=== PATIENT | male | born 1945 | race Caucasian/White ===

== ENCOUNTER → 2016-11-26 | Outpatient (CLI) | payer MEDICARE, BC ==
[2016-11-26 17:21] LABS: Non-African American GFR(MDRD) 54 (>60 ml/min/1.73 sqM)
== END | disposition home or self-care (01) ==
LOC: LABWHC1 16:07
PROVIDERS: ATTEND Otolaryngology
DX: Z01.818 Encounter for other preprocedural examination (principal); R42 Dizziness and giddiness
CPT/HCPCS: 36415; 82565

== ENCOUNTER → 2016-11-27 | Outpatient (CLI) | payer MEDICARE, BC ==
--- NOTE | 2016-11-27 09:15 | MR ---
MR internal auditory canals without contrast HISTORY: Vertigo Multiplanar multisequence imaging performed through the brain with small [id number] images through the internal auditory canals. Postcontrast images were not performed. Patient refused further imagin g. No comparisons There is no restricted diffusion. Cortical atrophy is present. Corpus callosum, pituitary, cervical m edullary junction, cerebellopontine angles are normal. Periventricular white matter shows hyperintens ity on inversion recovery and T2-weighted sequences, scattered hyperintensities are present, approxim ately 10-20 lesions. There is no hemorrhage or hydrocephalus. The orbits show symmetric appearance. I nflammatory changes are present in the bilateral maxillary sinus, sphenoid, ethmoid air cells. There are normal vascular flow voids. Internal auditory canals show symmetric and unremarkable appearance. Orbits are unremarkable. IMPRESSION: Nonspecific white matter demyelination, cortical atrophy likely related to age. Sinus dis ease.
--- NOTE | 2016-11-27 09:28 | US ---
EXAMINATION TYPE: US carotid duplex BILAT DATE OF EXAM: 11/27/2016 8:51 AM COMPARISON: NONE CLINICAL HISTORY: H81.43 vertigo. EXAM MEASUREMENTS: RIGHT: Peak Systolic Velocity (PSV) cm/sec ----- Right CCA: 58.6 ----- Right ICA: 70.4 ----- Right ECA: 249.9 ICA/CCA ratio: 1.2 RIGHT: End Diastole cm/sec ----- Right CCA: 18.6 ----- Right ICA: 34.1 ----- Right ECA: 49.6 LEFT: Peak Systolic Velocity (PSV) cm/sec ----- Left CCA: 57.8 ----- Left ICA: 212.6 ----- Left ECA: 136.6 ICA/CCA ratio: 3.7 LEFT: End Diastole cm/sec ----- Left CCA: 16.8 ----- Left ICA: 100.4 ----- Left ECA: 16.0 VERTEBRALS (direction of flow): Right Vertebral: Antegrade Left Vertebral: Antegrade Findings: Bilateral severe atherosclerotic changes, no significant velocity increases on RIGHT ICA, R IGHT ECA and LEFT ICA show significant velocity increases. IMPRESSION: 1. Estimated diameter reduction left ICA of approximately 50-69%. Criteria for Assigning % of Stenosis / Diameter reduction (Estimation based on the indirect measurements of the internal carotid artery velocities (ICA PSV). 1. Normal (no stenosis)=ICA PSV < 125 cm/s: ratio < 2.0: ICA EDV<40 cm/s. 2. Less than 50% stenosis=ICA PSV < 125 cm/s: ratio < 2.0: ICA EDV<40 cm/s. 3. 50 to 69% stenosis=ICA PSV of 125 to 230 cm/s: ration 2.0 ? 4.0: ICA EDV 40-100 cm/s. 4. Greater than 70% stenosis to near occlusion= ICA PSV > 230 cm/s: ratio > 4.0: ICA EDV > 100 cm/s. 5. Near occlusion= ICA PSV velocities may be low or undetectable: variable ratio and ICA EDV. 6. Total occlusion=unable to detect flow.
== END | disposition home or self-care (01) ==
LOC: RADMRIMAIN 07:25
PROVIDERS: ATTEND Otolaryngology
DX: G31.9 Degenerative disease of nervous system, unspecified (principal); I65.22 Occlusion and stenosis of left carotid artery
CPT/HCPCS: 70551; 93880

== ENCOUNTER → 2017-03-27 | Outpatient (CLI) | payer MEDICARE, BC ==
[2017-03-27 10:01] LABS: CH 31.2; CHCM 33.1; HCT 48.1 % (39.0-53.0); HDW 2.72; HGB 15.4 gm/dL (13.0-17.5); MCH 30.4 pg (25.0-35.0); MCHC 32.1 g/dL (31.0-37.0); MCV 94.7 fL (80.0-100.0); Mean Platelet Volume 7.7; RBC 5.08 m/uL (4.30-5.90); RDW 14.8 % (11.5-15.5); WBC 6.7 k/uL (3.8-10.6)
[2017-03-27 10:16] LABS: Anion Gap 13 mmol/L; Blood Urea Nitrogen 21 mg/dL (9-20); Carbon Dioxide 23 mmol/L (22-30); Chloride 107 mmol/L (98-107); Non-African American GFR(MDRD) 54 (>60 ml/min/1.73 sqM); Potassium 4.4 mmol/L (3.5-5.1); Sodium 143 mmol/L (137-145)
== END | disposition home or self-care (01) ==
LOC: LABPAT 09:10
PROVIDERS: ATTEND Internal Medicine Cardiovascular Disease
DX: Z01.812 Encounter for preprocedural laboratory examination (principal); I48.2 Chronic atrial fibrillation
CPT/HCPCS: 80051; 82565; 84520; 85027

== ENCOUNTER 2017-04-27 07:03 | Day surgery (SDC) | payer MEDICARE, BC ==
[~2017-04-27 07:03] MED LIST: ceFAZolin 1,000 MG in SODIUM CHLORIDE 0.9% IRRIGATIO 250 ML IRRIGATION ONE; ceFAZolin 2 GM in SODIUM CHLORIDE 0.9% 100 ML IVPB ONE
[2017-04-27 07:54] LABS: Basophils # (A) 0.1 k/uL (0-0.2); Basophils % (A) 1 %; CH 31.5; CHCM 33.9; Eosinophils # (A) 0.7 k/uL (0-0.7); Eosinophils % (A) 9 %; HCT 47.7 % (39.0-53.0); HDW 2.72; HGB 16.4 gm/dL (13.0-17.5); INR 1.2 (<1.2); Luc # (Auto) 0.14; Luc % (Auto) 2; Lymphocytes # (A) 2.3 k/uL (1.0-4.8); Lymphocytes % (A) 28 %; MCH 32.2 pg (25.0-35.0); MCHC 34.4 g/dL (31.0-37.0); MCV 93.5 fL (80.0-100.0); Mean Platelet Volume 8.5; Monocytes # (A) 0.5 k/uL (0-1.0); Monocytes % (A) 6 %; Neutrophils # (A) 4.3 k/uL (1.3-7.7); Neutrophils % (A) 54 %; Prothrombin Time 11.6 sec (9.0-12.0); RDW 15.1 % (11.5-15.5)
[2017-04-27 08:08] LABS: Anion Gap 13 mmol/L; Blood Urea Nitrogen 23 mg/dL (9-20); Calcium 9.3 mg/dL (8.4-10.2); Carbon Dioxide 23 mmol/L (22-30); Chloride 104 mmol/L (98-107); Glucose 109 mg/dL (74-99); Non-African American GFR(MDRD) >60 (>60 ml/min/1.73 sqM); Potassium 4.7 mmol/L (3.5-5.1); Sodium 140 mmol/L (137-145)
[2017-04-27] MEDS: SODIUM CHLORIDE 0.9% 1,000 ML IV SCH ×2 (08:58→15:00)
[2017-04-27] MEDS ORDERED: IOHEXOL 350 MG/ML 50ML BOTTLE INJ ONE (09:10)
[2017-04-27] MEDS ORDERED: MIDAZOLAM 2 MG/2 ML VIAL ONE (09:39)
[2017-04-27] MEDS ORDERED: fentaNYL (PF) 50 MCG/ML 2 ML AMP ONE (09:39)
[2017-04-27] MEDS ORDERED: MIDAZOLAM 2 MG/2 ML VIAL IV ONE (09:52)
[2017-04-27] MEDS ORDERED: fentaNYL (PF) 50 MCG/ML 2 ML AMP IV ONE (09:52)
[2017-04-27] MEDS ORDERED: LIDOCAINE 1% INJ 10MG/ML (20 ML MDV) SQ ONE ×2 (09:54)
[2017-04-27] MEDS ORDERED: ACETAMINOPHEN TAB 325 MG TAB PO PRN (10:34)
--- NOTE | 2017-04-27 10:48 | P.PCN ---
Date of Procedure: 04/27/17 Preoperative Diagnosis: Sick Sinus syndrome with history of syncope Postoperative Diagnosis: The same Procedure(s) Performed: Axillary venography, single-chamber, permanent pacemaker implantation. Implants: Indications for Procedure: Operative Findings: Description of Procedure: HISTORY: This is a 72-year-old gentleman with history of atrial fibrillation, had a syncopal episode. Patient was evaluated by 24-hour monitor by Dr. Curtis. Patient was found to have evidence of sick sinus syndrome with pauses of more than 3 seconds. Patient was advised to have permanent pacemaker implantation. CONSENT:I have discussed the risks, benefits and alternative therapies for the above-mentioned procedure and for both sedation/analgesia as well as necessary blood product administration, if indicated, as they pertain to this patient. The patient has indicated understanding and acceptance of the risks and procedures discussed. CONSCIOUS SEDATION: Patient was given 1 mg of Versed and 50 g of fentanyl. Duration of the sedation is 40 minutes. PROCEDURE: Patient was brought to the lab in a fasting state. Patient was prepped and draped in the usual fashion. Patient was given IV sedation with fentanyl and Versed. The skin below the left clavicle was infiltrated with lidocaine. An incision was made parallel to deltopectoral groove was deepened until the pectoral fascia was exposed. A pocket was created by blunt dissection and cautery. Axillary venography was performed to delineate the course of the axillary vein. Single stick was performed into extrathoracic portion of the axillary vein and a single sheath was advanced over the guidewires in to left subclavian vein. LEADS: VENTRICULAR: This is manufactured by [employer]. Model number is [id number]. Serial number is [id number]. THE DEVICE: This is manufactured by [employer]. Model number is [id number]. Serial number is [id number]. The ventricular lead is maneuvered l with help of a straight and curved stylets into the left ventricle apical region. Satisfactory position was obtained and threshold measurements were made. The atrial lead was then maneuvered into the right atrial appendage. And thresholds were obtained. THRESHOLDS: VENTRICLE: The minimal patient threshold was 0.5 V at a pulse width of 0.5 ms. The impedance is 967 ohms. The intrinsic R-wave is 10 mV. The lead and pulse generator remained in the pocket after it was washed with antibiotics. Pocket was closed in the usual fashion. The fascia was closed with 2-0 Prolene ,the subcutaneous tissue was closed with 3-0 Prolene and the skin was closed with 4-0 Prolene. PROGRAMMING: MODE: VVIR RATE: 60-120 OUTPUT: Ventricle& the 0.5 V at 0.5 ms FINAL IMPRESSION: #1. Axillary venography. #2. Insertion of the single- chamber permanent pacemaker COMPLICATIONS: Nil PLAN: And Antibiotics. Resume home medications along with anticoagulation. Chest x-ray in the morning. If stable will be discharged home within next 24 hours.
[2017-04-27 11:32] VITALS: BMI 25.6
[2017-04-27] MEDS: HYDROcodone/APAP 5-325MG 1 EACH TAB PO PRN ×2 (12:41→22:30)
[2017-04-27] MEDS: ceFAZolin 2 GM in SODIUM CHLORIDE 0.9% 100 ML IVPB SCH ×2 (16:00→22:14)
[2017-04-27] MEDS: CARBIDOPA-LEVODOPA 25-100 MG 1 EACH TAB PO SCH (16:25)
[2017-04-27] MEDS ORDERED: WARFARIN 2.5 MG TAB PO SCH (18:00)
[2017-04-27] MEDS ORDERED: ATORVASTATIN 10 MG TAB PO SCH (21:00)
[2017-04-28] MEDS: ceFAZolin 2 GM in SODIUM CHLORIDE 0.9% 100 ML IVPB SCH ×2 (03:40→08:24)
[2017-04-28] MEDS: HYDROcodone/APAP 5-325MG 1 EACH TAB PO PRN ×2 (03:43→08:23)
--- NOTE | 2017-04-28 07:34 | XR ---
EXAMINATION TYPE: XR chest 2V DATE OF EXAM: 04/28/2017 HISTORY: Lead placement check. REFERENCE: Previous study dated 05/26/2014. FINDINGS: There is unipolar pacemaker place on the left. The distal lead overlies the right ventricle . The heart is enlarged. There is left basilar airspace disease. There is a small left effusion. There is no evidence of pneumothorax. IMPRESSION: 1. CARDIOMEGALY. 2. LEFT BASILAR AIRSPACE DISEASE. 3. SMALL LEFT EFFUSION.
[2017-04-28] MEDS: SODIUM CHLORIDE 0.9% 1,000 ML IV SCH ×2 (07:54→07:55)
[2017-04-28 07:59] VITALS: BP 131/94; PULSE 62; RESP 18; TEMP 97.6
[2017-04-28] MEDS: CARBIDOPA-LEVODOPA 25-100 MG 1 EACH TAB PO SCH (08:22)
[2017-04-28] MEDS ORDERED: ASPIRIN 81 MG CHEW PO SCH (09:00)
--- NOTE | 2017-04-28 09:48 | P.DS ---
Providers Date of admission: 04/27/2017. Attending physician: Gold Cazares Primary care physician: Chad Corcoran - Discharge Diagnosis(es) (1) Presence of permanent cardiac pacemaker Current Visit: Yes Status: Acute (2) Chronic atrial fibrillation Current Visit: Yes Status: Acute (3) Sick sinus syndrome Current Visit: Yes Status: Acute (4) History of syncope Current Visit: Yes Status: Acute Hospital Course: This patient was brought in for elective permanent pacemaker implantation because of syncope and evidence of sick sinus syndrome. Patient has chronic atrial fibrillation. Patient had a single-chamber permanent pacemaker implantation yesterday. Patient tolerated the procedure well. He remained stable overnight without any significant issues. Patient had transient hypotension which was corrected with IV fluids. Chest x-ray shows proper lead position. There is questionable mild atelectasis in the small left-sided pleural effusion. Overall, patient is critically stable. Patient is being discharged home in stable condition. He'll continue his home medications including Coumadin. He will have PT and INR on Wednesday. Follow-up with Dr. Curtis, and also in the device clinic in 1 week. Patient is given usual post pacemaker instructions. Patient is advised to keep the incision dry and also not to use her left arm above the shoulder level. He is advised to avoid any heavy lifting, pushing, pulling or driving car. He is also instructed to call us if he does any fever, chills, redness or swelling around the incision Plan - Discharge Summary New Discharge Prescriptions: New Cephalexin [Keflex] 500 mg PO Q8HR #10 cap No Action RX: Aspirin [Adult Low Dose Aspirin EC] 81 mg PO DAILY Atorvastatin [Lipitor] 10 mg PO HS Carbidopa-Levodopa 25-100 mg [Sinemet 25-100 mg] 2 tab PO BID RX: Warfarin [Coumadin] 5 mg PO MOWEFRSA RX: Warfarin [Coumadin] 2.5 mg PO SUTUTH Cholecalciferol [Vitamin D3] 1,000 unit PO DAILY Discharge Medication List Atorvastatin [Lipitor] 10 mg PO HS 04/23/17 [History] Carbidopa-Levodopa 25-100 mg [Sinemet 25-100 mg] 2 tab PO BID 04/23/17 [History] Cholecalciferol [Vitamin D3] 1,000 unit PO DAILY 04/23/17 [History] RX: Aspirin [Adult Low Dose Aspirin EC] 81 mg PO DAILY 04/23/17 [History] RX: Warfarin [Coumadin] 2.5 mg PO SUTUTH 04/23/17 [History] RX: Warfarin [Coumadin] 5 mg PO MOWEFRSA 04/23/17 [History] Cephalexin [Keflex] 500 mg PO Q8HR #10 cap 04/28/17 [Rx] Follow up Appointment(s)/Referral(s): Marco Curtis MD [STAFF PHYSICIAN] - 1 Week Discharge Disposition: HOME SELF-CARE
[2017-04-28] MEDS ORDERED: CHOLECALCIFEROL 1,000 UNIT TAB PO SCH (12:00)
[2017-04-28] MEDS ORDERED: WARFARIN 5 MG TAB PO SCH (18:00)
== END 2017-04-28 10:53 | disposition home or self-care (01) ==
LOC: CATHEP 07:03 → 3OBS 10:30 → CATHEP 04-28 10:53
PROVIDERS: ATTEND Internal Medicine Cardiovascular Disease
DX: I49.5 Sick sinus syndrome (principal); I48.2 Chronic atrial fibrillation; Z79.01 Long term (current) use of anticoagulants; Z87.891 Personal history of nicotine dependence; Z79.899 Other long term (current) drug therapy; I51.7 Cardiomegaly; J90 Pleural effusion, not elsewhere classified; J98.4 Other disorders of lung
CPT/HCPCS: 71020 ×2; 99152; 99153 ×2; 33207; 80048; 85025; 85610; C1786; C1898; J2250; J0690 ×3; J2001; J3010; Q9967

== ENCOUNTER → 2017-12-15 | Outpatient (CLI) | payer MEDICARE, BC ==
--- NOTE | 2017-12-15 09:51 | XR ---
EXAMINATION TYPE: XR chest 2V DATE OF EXAM: 12/15/2017 COMPARISON: 04/28/[address] 02/21/2016 HISTORY: 72-year-old male weakness and shortness of breath TECHNIQUE: Frontal and lateral views FINDINGS: Heart upper limits of normal in size. Mild elongation thoracic aorta. There is some patchy peripheral left basilar density. No pleural effusion. Retrocardiac air-fluid levels are noted. Left anterior ch est wall pacemaker generator with right ventricular lead. IMPRESSION: 1. Borderline heart size. Some patchy left basilar atelectasis or early infiltrate. 2. Large hiatal hernia. When correlating with patient's previous CT, there is suggestion of a promine nt gastric fundal diverticulum as well.
[2017-12-15 10:58] LABS: INR 2.8 (<1.2); Partial Thromboplastin Time 30.2 sec (22.0-30.0); Prothrombin Time 25.5 sec (9.0-12.0)
[2017-12-15 11:00] LABS: ALT 14 U/L (21-72); AST 21 U/L (17-59); Albumin 3.7 g/dL (3.5-5.0); Alkaline Phosphatase 236 U/L (38-126); Anion Gap 13 mmol/L; Blood Urea Nitrogen 21 mg/dL (9-20); Carbon Dioxide 24 mmol/L (22-30); Chloride 106 mmol/L (98-107); Glucose 126 mg/dL (74-99); Potassium 4.1 mmol/L (3.5-5.1); Sodium 143 mmol/L (137-145); Total Bilirubin 0.6 mg/dL (0.2-1.3); Total Protein 6.7 g/dL (6.3-8.2)
[2017-12-15 11:10] LABS: HCT 44.9 % (39.0-53.0); HGB 14.7 gm/dL (13.0-17.5); MCH 30.1 pg (25.0-35.0); MCHC 32.7 g/dL (31.0-37.0); Platelet Count 213 k/uL (150-450); RBC 4.88 m/uL (4.30-5.90); RDW 14.5 % (11.5-15.5); WBC 10.9 k/uL (3.8-10.6)
== END | disposition home or self-care (01) ==
LOC: RADXRMAIN 09:24
PROVIDERS: ATTEND Psychiatry & Neurology Neurology
DX: R06.02 Shortness of breath (principal); G21.19 Other drug induced secondary parkinsonism; T38.0X5A Adverse effect of glucocorticoids and synthetic analogues, initial encounter
CPT/HCPCS: 36415; 71046; 80053; 85027; 85610; 85730

== ENCOUNTER → 2018-01-19 | Outpatient (CLI) | payer MEDICARE, BC ==
[2018-01-19 09:56] LABS: Anion Gap 11 mmol/L; Blood Urea Nitrogen 17 mg/dL (9-20); Calcium 8.7 mg/dL (8.4-10.2); Carbon Dioxide 27 mmol/L (22-30); Chloride 104 mmol/L (98-107); Glucose 193 mg/dL (74-99); Potassium 3.7 mmol/L (3.5-5.1); Sodium 142 mmol/L (137-145)
== END | disposition home or self-care (01) ==
LOC: LABWHC1 08:18
PROVIDERS: ATTEND Psychiatry & Neurology Neurology
DX: I48.2 Chronic atrial fibrillation (principal)
CPT/HCPCS: 36415; 80048

== ENCOUNTER → 2018-01-21 | Outpatient (CLI) | payer MEDICARE, BC ==
--- NOTE | 2018-01-21 09:54 | CT ---
EXAMINATION TYPE: CT chest wo con DATE OF EXAM: 01/21/2018 COMPARISON: NONE HISTORY: Pneumonia CT DLP: 374.[address] of the chest was performed with lung and mediastinal window settings submitted. The la ck of contrast limits evaluation of the vascular, mediastinal and parenchymal structures including th e upper abdomen. LUNGS: The lungs are clear and free of infiltrate. No atelectasis. No pulmonary nodule or mass is de tected. No pleural effusion. No CT evidence of interstitial lung disease. MEDIASTINUM/ANGELA: Large fixed hiatal hernia identified. Thoracic aorta is of normal caliber with zuñiga ited evaluation given lack of contrast. The heart is enlarged. Coronary artery calcifications seen . No evidence for mediastinal mass. No lymph nodes greater than 1cm. UPPER ABDOMEN: No significant abnormality is seen. OTHER: No significant other abnormality. IMPRESSION: 1. No evidence for pneumonia. 2. Large fixed hiatal hernia.
== END ==
LOC: RADCTMAIN 08:19
PROVIDERS: ATTEND Family Medicine
DX: K44.9 Diaphragmatic hernia without obstruction or gangrene (principal); J18.9 Pneumonia, unspecified organism
CPT/HCPCS: 71250

== ENCOUNTER 2018-06-16 21:29 | Emergency (ER) | payer MEDICARE, BC ==
[2018-06-16] MEDS ORDERED: SODIUM CHLORIDE 0.9% 500 ML IV STA (21:53)
[2018-06-16 22:06] LABS: Basophils # (A) 0.1 k/uL (0-0.2); Basophils % (A) 0 %; Eosinophils # (A) 0.1 k/uL (0-0.7); Eosinophils % (A) 1 %; HCT 41.4 % (39.0-53.0); HGB 14.1 gm/dL (13.0-17.5); Lymphocytes # (A) 1.5 k/uL (1.0-4.8); Lymphocytes % (A) 14 %; MCH 30.6 pg (25.0-35.0); Mean Platelet Volume 7.2; Monocytes # (A) 0.6 k/uL (0-1.0); Monocytes % (A) 5 %; Neutrophils # (A) 8.4 k/uL (1.3-7.7); Neutrophils % (A) 78 %; Platelet Count 243 k/uL (150-450); RDW 14.6 % (11.5-15.5); WBC 10.8 k/uL (3.8-10.6)
[2018-06-16 22:12] LABS: ALT 22 U/L (21-72); AST 22 U/L (17-59); Albumin 3.4 g/dL (3.5-5.0); Alkaline Phosphatase 236 U/L (38-126); Anion Gap 9 mmol/L; Blood Urea Nitrogen 18 mg/dL (9-20); Calcium 8.4 mg/dL (8.4-10.2); Carbon Dioxide 32 mmol/L (22-30); Chloride 97 mmol/L (98-107); Glucose 168 mg/dL (74-99); Magnesium 2.1 mg/dL (1.6-2.3); Potassium 3.1 mmol/L (3.5-5.1); Sodium 138 mmol/L (137-145); Total Bilirubin 1.3 mg/dL (0.2-1.3); Total Protein 6.5 g/dL (6.3-8.2)
[2018-06-16 22:13] LABS: INR 1.5 (<1.2); Partial Thromboplastin Time 25.1 sec (22.0-30.0); Prothrombin Time 13.5 sec (9.0-12.0)
[2018-06-16 22:28] LABS: Creatine Kinase MB 0.7 ng/mL (0.0-2.4); Troponin I 0.016 ng/mL (0.000-0.034)
--- NOTE | 2018-06-16 22:31 | ED ---
General Adult HPI - General Chief complaint: Weakness Stated complaint: WEAKNESS Time Seen by Provider: 06/16/18 21:33 Source: patient, RN notes reviewed, old records reviewed Mode of arrival: EMS Limitations: no limitations - History of Present Illness Initial comments: 73-year-old male presents with complaint of generalized weakness. Patient's symptoms have been progressive over the past one month. Patient is accompanied by his daughter. She states that he did have a fall this evening, patient was lowered to the ground. There was no significant head trauma. Patient is currently on Coumadin. Denies any focal weakness or numbness. Denies chest pain or shortness of breath. He has had some mild nausea, no vomiting. - Related Data Home Medications Medication Instructions Recorded Confirmed Aspirin [Adult Low Dose Aspirin EC] 81 mg PO DAILY 04/23/17 06/16/18 Atorvastatin [Lipitor] 10 mg PO HS 04/23/17 06/16/18 Carbidopa-Levodopa 25-100 mg 2 tab PO BID 04/23/17 06/16/18 [Sinemet 25-100 mg] Cholecalciferol [Vitamin D3] 1,000 unit PO DAILY 04/23/17 06/16/18 Warfarin [Coumadin] 2.5 mg PO MOTUWETHFRSA 04/23/17 06/16/18 Warfarin [Coumadin] 5 mg PO LORENZ 04/23/17 06/16/18 Digoxin [Lanoxin] 250 mcg PO DAILY 06/16/18 06/16/18 Fludrocortisone [Florinef] 0.1 mg PO BID 06/16/18 06/16/18 Midodrine HCl [ProAmatine] 10 mg PO TID 06/16/18 06/16/18 Allergies Allergy/AdvReac Type Severity Reaction Status Date / Time No Known Allergies Allergy Verified 06/16/18 22:03 Review of Systems ROS Statement: Those systems with pertinent positive or pertinent negative responses have been documented in the HPI. ROS Other: All systems not noted in ROS Statement are negative. Past Medical History Past Medical History: Atrial Fibrillation, Hyperlipidemia, Hypertension, Mitral Valve Prolapse (MVP) Additional Past Medical History / Comment(s): slow HR and low BP (d/c Atenolol) = pacemaker inserted 04/27/17, parkinsons History of Any Multi-Drug Resistant Organisms: None Reported Past Surgical History: Hernia Repair, Tonsillectomy Additional Past Surgical History / Comment(s): BILATERAL CATARACTS. UMBILICAL HERNIA.CARDIOVERSION. Pacemaker 04/27/17 Past Anesthesia/Blood Transfusion Reactions: No Reported Reaction Past Psychological History: No Psychological Hx Reported Smoking Status: Never smoker Past Alcohol Use History: None Reported, Occasional Past Drug Use History: None Reported - Past Family History Mother Family Medical History: AICD/Pacemaker Additional Family Medical History / Comment(s): "enlarged heart" General Exam Limitations: no limitations General appearance: alert, in no apparent distress Head exam: Present: atraumatic, normocephalic Eye exam: Present: normal appearance, PERRL ENT exam: Present: normal exam Neck exam: Present: normal inspection, full ROM. Absent: tenderness, meningismus Respiratory exam: Present: normal lung sounds bilaterally. Absent: respiratory distress Cardiovascular Exam: Present: regular rate, irregular rhythm GI/Abdominal exam: Present: soft. Absent: distended, tenderness, guarding Extremities exam: Present: normal inspection, normal capillary refill. Absent: pedal edema Neurological exam: Present: alert, oriented X3, CN II-XII intact. Absent: motor sensory deficit (Patient has bilateral lower extremity weakness, no focal weakness.) Psychiatric exam: Present: normal affect, normal mood Skin exam: Present: warm, dry, intact. Absent: cyanosis, diaphoretic Course Vital Signs 06/16/18 06/16/18 06/16/18 21:43 21:56 22:30 Temperature 100.2 F H Pulse Rate 81 61 Pulse Rate [ 78 Insulation Supervisor ] Respiratory 16 18 Rate Blood Pressure 170/85 210/92 O2 Sat by Pulse 96 97 Oximetry 06/16/18 23:36 Temperature 98.9 F Pulse Rate 59 L Pulse Rate [ Insulation Supervisor ] Respiratory 16 Rate Blood Pressure 169/91 O2 Sat by Pulse 98 Oximetry - Reevaluation(s) Reevaluation #1: 06/16/18 22:45 Patient reevaluated, neurologic exam remains nonfocal, blood pressure is elevated. EKG Findings - EKG Comments: EKG Findings:: EKG: Atrial fibrillation, right bundle branch block, T wave inversion in the precordial leads. History of atrial fibrillation and right bundle branch block, compared to EKG in May 2014. There is no ST segment elevation. Rate of 76, QRS duration 146, QTC 444 Medical Decision Making - Medical Decision Making 73-year-old male presenting with generalized weakness and minor fall. No significant head injury. Head CT is obtained, there is a large acute on chronic subdural hematoma with effacement of the ventricle and midline shift. Patient is on Coumadin, INR 1.5, he is reversed with Kcentra. Given mannitol, labetalol, and Keppra in the emergency department. Case is discussed with ER physician at [facility] Dr. Modi, patient will be transferred for neurosurgical evaluation. Patient reevaluated, he is awake and alert, moving all extremities symmetrically , no significant complaints. Diagnosis: Subdural hematoma with midline shift. - Lab Data Result diagrams: 06/16/18 21:48 06/16/18 21:48 Lab Results 06/16/18 06/16/18 06/16/18 Range/Units 21:48 21:48 21:48 WBC 10.8 H (3.8-10.6) k/uL RBC 4.60 (4.30-5.90) m/uL Hgb 14.1 (13.0-17.5) gm/dL Hct 41.4 (39.0-53.0) % MCV 90.0 (80.0-100.0) fL MCH 30.6 (25.0-35.0) pg MCHC 34.0 (31.0-37.0) g/dL RDW 14.6 (11.5-15.5) % Plt Count 243 (150-450) k/uL Neutrophils % 78 % Lymphocytes % 14 % Monocytes % 5 % Eosinophils % 1 % Basophils % 0 % Neutrophils # 8.4 H (1.3-7.7) k/uL Lymphocytes # 1.5 (1.0-4.8) k/uL Monocytes # 0.6 (0-1.0) k/uL Eosinophils # 0.1 (0-0.7) k/uL Basophils # 0.1 (0-0.2) k/uL PT (9.0-12.0) sec INR (<1.2) APTT (22.0-30.0) sec Sodium 138 (137-145) mmol/L Potassium 3.1 L (3.5-5.1) mmol/L Chloride 97 L (98-107) mmol/L Carbon Dioxide 32 H (22-30) mmol/L Anion Gap 9 mmol/L BUN 18 (9-20) mg/dL Creatinine 0.85 (0.66-1.25) mg/dL Est GFR (CKD-EPI)AfAm >90 (>60 ml/min/1.73 sqM) Est GFR (CKD-EPI)NonAf 85 (>60 ml/min/1.73 sqM) Glucose 168 H (74-99) mg/dL Plasma Lactic Acid Jatinder (0.7-2.0) mmol/L Calcium 8.4 (8.4-10.2) mg/dL Magnesium 2.1 (1.6-2.3) mg/dL Total Bilirubin 1.3 (0.2-1.3) mg/dL AST 22 (17-59) U/L ALT 22 (21-72) U/L Alkaline Phosphatase 236 H (38-126) U/L Total Creatine Kinase 68 (55-170) U/L CK-MB (CK-2) 0.7 (0.0-2.4) ng/mL CK-MB (CK-2) Rel Index 1.0 Troponin I 0.016 (0.000-0.034) ng/mL Total Protein 6.5 (6.3-8.2) g/dL Albumin 3.4 L (3.5-5.0) g/dL 06/16/18 06/16/18 Range/Units 21:48 21:48 WBC (3.8-10.6) k/uL RBC (4.30-5.90) m/uL Hgb (13.0-17.5) gm/dL Hct (39.0-53.0) % MCV (80.0-100.0) fL MCH (25.0-35.0) pg MCHC (31.0-37.0) g/dL RDW (11.5-15.5) % Plt Count (150-450) k/uL Neutrophils % % Lymphocytes % % Monocytes % % Eosinophils % % Basophils % % Neutrophils # (1.3-7.7) k/uL Lymphocytes # (1.0-4.8) k/uL Monocytes # (0-1.0) k/uL Eosinophils # (0-0.7) k/uL Basophils # (0-0.2) k/uL PT 13.5 H (9.0-12.0) sec INR 1.5 H (<1.2) APTT 25.1 (22.0-30.0) sec Sodium (137-145) mmol/L Potassium (3.5-5.1) mmol/L Chloride (98-107) mmol/L Carbon Dioxide (22-30) mmol/L Anion Gap mmol/L BUN (9-20) mg/dL Creatinine (0.66-1.25) mg/dL Est GFR (CKD-EPI)AfAm (>60 ml/min/1.73 sqM) Est GFR (CKD-EPI)NonAf (>60 ml/min/1.73 sqM) Glucose (74-99) mg/dL Plasma Lactic Acid Jatinder 2.0 (0.7-2.0) mmol/L Calcium (8.4-10.2) mg/dL Magnesium (1.6-2.3) mg/dL Total Bilirubin (0.2-1.3) mg/dL AST (17-59) U/L ALT (21-72) U/L Alkaline Phosphatase (38-126) U/L Total Creatine Kinase (55-170) U/L CK-MB (CK-2) (0.0-2.4) ng/mL CK-MB (CK-2) Rel Index Troponin I (0.000-0.034) ng/mL Total Protein (6.3-8.2) g/dL Albumin (3.5-5.0) g/dL Critical Care Time Critical Care Time: Yes Total Critical Care Time: 35 Disposition Clinical Impression: Subdural hematoma Disposition: OTHER INSTITUTION NOT DEFINED Condition: Serious Is patient prescribed a controlled substance at d/c from ED?: No Referrals: Chad Corcoran DO [Primary Care Provider] - 1-2 days Time of Disposition: 22:47 - Out of Hospital Transfer - Req. Specs Out of Hospital Transfer - Requested Specifics: Other Emergency Center ( Transferred to [facility]
[2018-06-16] MEDS ORDERED: LABETALOL 5 MG/ML VIAL MDV IVP STA (22:37)
[2018-06-16] MEDS ORDERED: levETIRAcetam IV 1,000 MG in SALINE 1 100ML.BAG IVPB STA (22:37)
--- NOTE | 2018-06-16 22:38 | CT ---
EXAMINATION TYPE: CT brain wo con DATE OF EXAM: 06/16/2018 COMPARISON: None HISTORY: Weakness CT DLP: 1126.5 mGycm Automated exposure control for dose reduction was used. FINDINGS: There is widening of the subdural space over the right cerebral hemisphere with mixed attenuation con sistent with acute and chronic subdural hematoma. This measures up to 16 mm in thickness. There is ef facement of the right lateral ventricle. There is shift of midline to the left side. There is some ef facement of the third ventricle. Calvarium is intact. There is mucosal thickening in the posterior sp henoid sinus. There is no evidence of a skull fracture. IMPRESSION: THERE IS MODERATE-SIZED ACUTE AND CHRONIC SUBDURAL HEMATOMA ON THE RIGHT SIDE WITH MIDLINE SHIFT. THI S EXAM WAS DISCUSSED WITH ER PHYSICIAN AT 10:35 PM.
--- NOTE | 2018-06-16 22:39 | XR ---
EXAMINATION TYPE: XR chest 1V DATE OF EXAM: 06/16/2018 COMPARISON: 12/15/2017 HISTORY: Weakness TECHNIQUE: Single frontal view of the chest is obtained. FINDINGS: Heart is enlarged. There is no heart failure. Costophrenic angles are clear. There is left axillary pacemaker with the lead tip in the right ventricle. There are chest leads. Bony thorax is i ntact. There is lucency over the heart consistent with hiatal hernia. IMPRESSION: Cardiomegaly. No active cardiopulmonary disease. No change.
[2018-06-16] MEDS ORDERED: HUMAN PROTHROMBIN COMPLX IV ONE (22:45)
[2018-06-16] MEDS ORDERED: PHYTONADIONE 10 MG in SODIUM CHLORIDE 0.9% 50 ML IVPB STA (22:50)
[2018-06-16] MEDS ORDERED: SODIUM CHLORIDE IV SCH ×2 (23:00)
[2018-06-16] MEDS ORDERED: MANNITOL IV SCH ×2 (23:00)
[2018-06-16 23:39] VITALS: BP 169/91; PULSE 59; RESP 16; TEMP 98.9
[2018-06-17] MEDS ORDERED: POTASSIUM CHLORIDE 20 MEQ in WATER FOR INJECTION 1 100ML.BAG IVPB SCH
== END 2018-06-16 23:46 | disposition other institution (70) ==
LOC: EC 21:29
DX: S06.5X9A Traumatic subdural hemorrhage with loss of consciousness of unspecified duration, initial encounter (principal); I48.91 Unspecified atrial fibrillation; E78.5 Hyperlipidemia, unspecified; G20 Parkinson's disease; Z79.01 Long term (current) use of anticoagulants; Z79.82 Long term (current) use of aspirin; Z79.52 Long term (current) use of systemic steroids; Z79.899 Other long term (current) drug therapy; Z95.0 Presence of cardiac pacemaker; Z53.8 Procedure and treatment not carried out for other reasons; W19.XXXA Unspecified fall, initial encounter
CPT/HCPCS: 99291; 96365 ×2; 96375; 36415; 93005; 80053; 82550; 82553; 83605; 83735; 84484; 85025; 85610; 85730; 87040; 71045; 70450; J3430; J2150; C9132